=== PATIENT | female | born 1980 | race Caucasian/White ===

== ENCOUNTER 2016-07-11 09:46 | Outpatient (CLI) | payer OTHER ==
[~2016-07-11] VITALS: Ht 162.6 cm; Wt 60.8 kg
[2016-07-11] MEDS ORDERED: LANS30CA PO (09:56)
[2016-07-11 10:24] LABS: BASOPHILS % (AUTO) 0 % (0-10); EOSINOPHILS # (AUTO) 0.1 10^3/uL (0.0-0.3); EOSINOPHILS % (AUTO) 2 % (0-10); LYMPHOCYTES # (AUTO) 1.3 X 10^3 (1.0-4.0); LYMPHOCYTES % (AUTO) 25 % (12-44); MEAN CORPUSCULAR HEMOGLOBIN 28 PG (25-34); MEAN CORPUSCULAR HGB CONC 32 G/DL (32-36); MEAN CORPUSCULAR VOLUME 88 FL (80-99); MEAN PLATELET VOLUME 10.4 FL (7.4-10.4); MONOCYTES # (AUTO) 0.5 X 10^3 (0.0-1.0); MONOCYTES % (AUTO) 10 % (0-12); NEUTROPHILS # (AUTO) 3.2 X 10^3 (1.8-7.8); NEUTROPHILS % (AUTO) 62 % (42-75); PLATELET COUNT 232 10^3/uL (130-400); RED CELL DISTRIBUTION WIDTH 12.5 % (10.0-14.5); WHITE BLOOD COUNT 5.2 10^3/uL (4.3-11.0)
== END 2016-07-11 10:05 | disposition home or self-care (01) ==
LOC: PREOP 09:46
PROVIDERS: ATTEND Surgery Pediatric Surgery
DX: Z01.812 Encounter for preprocedural laboratory examination (principal); Z11.2 Encounter for screening for other bacterial diseases; R13.10 Dysphagia, unspecified; K42.9 Umbilical hernia without obstruction or gangrene
CPT/HCPCS: 36415; 85025; 87081

== ENCOUNTER 2016-07-18 06:22 | Day surgery (SDC) | payer OTHER ==
[~2016-07-18] VITALS: Ht 162.6 cm; Wt 60.8 kg
[~2016-07-18 06:22] MED LIST: LANS30CA PO
[2016-07-18 06:45] VITALS: BP 103/67
[2016-07-18] MEDS ORDERED: FAMOTIDINE 20MG/2ML IV (PEPCID) IV ONE (06:45)
[2016-07-18] MEDS ORDERED: MIDAZOLAM 2 MG/2 ML (VERSED) VIAL ONE ×2 (06:48→08:20)
[2016-07-18] MEDS ORDERED: fentaNYL INJECTION 100 MCG/2 ML AMP ONE ×2 (06:48→10:01)
[2016-07-18] MEDS ORDERED: ONDANSETRON 4 MG/2 ML (SDV) Z0FRAN ONE ×2 (06:53→10:03)
[2016-07-18] MEDS ORDERED: LIDOCAINE PF 2% 10 ML (XYLOCAINE) AMP ONE (06:53)
[2016-07-18] MEDS ORDERED: proPOfol 200 MG/20 ML (DIPRIVAN) VIAL IV ONE (06:53)
[2016-07-18] MEDS ORDERED: DEXAMETHASONE PF 10 MG/ML (DECADRON) VIAL ONE (06:53)
[2016-07-18] MEDS ORDERED: ROCURONIUM 50 MG/5 ML (ZEMURON) VIAL IV ONE (06:53)
[2016-07-18] MEDS: LACTATED RINGERS 1,000 ML IV PRN ×3 (07:03→12:05)
[2016-07-18] MEDS ORDERED: BUP/EPI 0.25% 1:200,000 (MARCAINE) 30 ML VIAL ONE (07:15)
[2016-07-18] MEDS ORDERED: CLINDAMYCIN 600 MG/NS 50 ML IVPB IV ONE ×2 (07:15)
[2016-07-18] MEDS ORDERED: BUP/EPI 0.5% 1:200,000 (SENSORCAINE) 30 ML VIAL ONE (07:19)
--- NOTE | 2016-07-18 07:49 | Progress Note-Pre Operative ---
Pre-Operative Progress Note H&P Reviewed The H&P was reviewed, patient examined and no changes noted. Date H&P Reviewed: July 18, 2016 Time H&P Reviewed: 07:45 Pre-Operative Diagnosis: Symptomatic umbilical hernia, dysphagia, Positive H. 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
[2016-07-18] MEDS ORDERED: ACETAMINOPHEN 325 MG TABLET/CAPLET (TYLENOL) PO PRN (08:00)
[2016-07-18] MEDS ORDERED: ONDANSETRON 4 MG/2 ML (SDV) Z0FRAN IVP PRN ×2 (08:00→10:30)
[2016-07-18] MEDS ORDERED: morphine INJ 10 MG/ML 1ML (SYR OR VIAL) IVP PRN (08:00)
[2016-07-18] MEDS ORDERED: MIDAZOLAM 2 MG/2 ML (VERSED) VIAL IVP ONE (08:30)
[2016-07-18] MEDS ORDERED: LACTATED RINGERS 1,000 ML IV ONE (09:37)
[2016-07-18] MEDS ORDERED: GLYCOPYRROLATE 0.2 MG/ML (ROBINUL) 2 ML VIAL ONE (09:37)
[2016-07-18] MEDS ORDERED: NEOSTIGMINE (BLOXIVERZ ) 1 MG/1ML 10 ML VIAL ONE (09:37)
[2016-07-18] MEDS ORDERED: SEVOFLURANE (ULTANE) 15 ML INHAL SOLN ONE (09:50)
[2016-07-18] MEDS ORDERED: morphine INJ 10 MG/ML 1ML (SYR OR VIAL) ONE (10:00)
[2016-07-18] MEDS ORDERED: MEPERIDINE (DEMEROL) INJ 50 MG/ML ONE (10:00)
--- NOTE | 2016-07-18 10:02 | Progress Note-Post Operative ---
Post-Operative Progess Note Surgeon (s)/Casino Floor Supervisor (s) Surgeon ELIDA BABCOCK MD Casino Floor Supervisor: [facility] POST ACUTE CARE NURSE Pre-Operative Diagnosis Symptomatic umbilical hernia, dysphagia, Positive H. Pylori blood test Post-Operative Diagnosis symptomatic reducible umbilical hernia(1.5cm). reflux esophagitis(class B), small HH(2-3cm), moderate gastritis. Procedure & Operative Findings Date of Procedure 07/18/16 Procedure Performed/Findings EGD with bx. Anesthesia Type GET Estimated Blood Loss Estimated blood loss (mL): minimal Specimens/Packing Specimens Removed GE jxn, antrum ELIDA BABCOCK MD July 18, 2016 10:02 am
[2016-07-18] MEDS ORDERED: HYDROmorphone (DILAUDID) 2 MG/ML VIAL ONE (10:03)
[2016-07-18] MEDS ORDERED: PANT40TA2 PO (10:06)
[2016-07-18] MEDS ORDERED: TRAM-42 PO (10:06)
[2016-07-18] MEDS ORDERED: SUCR1TAB36 PO (10:06)
--- NOTE | 2016-07-18 10:07 | Discharge Inst-Surgical ---
D/C Lap Instructions-SADIQ New, Converted, or Re-Newed RX: RX on Chart Follow Up Appt in 2 weeks Activity as tolerated No driving for 24 hours No driving while on pain medications Incentive Spirometry use every 2 hours while awake Regular Diet Symptoms to Report: Fever over 101 degree F, Nausea/Vomiting Infection Signs and Symptoms to report: Increased redness, Foul odor of wound, Increased drainage Bathing instructions: May shower Operative Area Clean/Dry; Keep incision clean/dry If any problems/questions: Contact your physician or go to Emergency Room ELIDA BABCOCK MD July 18, 2016 10:07 am
[2016-07-18] MEDS: morphine INJ 10 MG/ML 1ML (SYR OR VIAL) IVP PRN ×2 (10:21→10:29)
[2016-07-18] MEDS ORDERED: HYDROmorphone (DILAUDID) 2 MG/ML VIAL IVP PRN (10:30)
[2016-07-18] MEDS ORDERED: fentaNYL INJECTION 100 MCG/2 ML AMP IVP PRN (10:30)
[2016-07-18 11:00] VITALS: BP 105/72
[2016-07-18 11:30] VITALS: BP 97/66
--- NOTE | 2016-07-18 11:35 | OPERATIVE REPORT ---
DATE OF SERVICE: 07/18/2016 ATTENDING PRIMARY CARE PHYSICIAN: Dr. Madisyn Conteh. PREOPERATIVE DIAGNOSES: Gastroesophageal reflux disease and peptic ulcer disease with H. pylori, symptomatic reducible umbilical hernia. POSTOPERATIVE DIAGNOSES: Reducible umbilical hernia approximately 1.5 cm in size, reflux esophagitis class B, small to moderate size hiatal hernia 2 to 3 cm in size, moderate severity gastritis. No formal ulcers. PROCEDURE: Open umbilical hernia repair with mesh. EGD with biopsy. SURGEON: Dr. Jeanette Babcock POLICE CADET: Quan Butler APRN ANESTHESIA: General endotracheal. ESTIMATED BLOOD LOSS: Minimal. FINDINGS: Small reducible umbilical hernia 1.5 cm in size. Reflux esophagitis class B. Small to moderate size hiatal hernia 2 to 3 cm in size. Moderate severity gastritis with no formal ulcers, polyps, or any neoplasms identified. Pylorus and duodenum appeared normal. DISPOSITION: The patient tolerated the procedure well. INDICATIONS: The patient is a 35-year-old female who was referred over to us for two different issues. She has had issues with substernal pressure sensation as well as crampy pain for the past several months. She underwent a blood test which was positive for H. pylori. 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 She reports that she continues to have some chest discomfort and pressure on an intermittent basis. She also has an umbilical hernia, which is small; however, quite tender to palpation and reducible. The patient was brought to the operating room, laid supine on the table. After adequate IV pain and sedating medications and general endotracheal intubation, the abdomen was prepped and draped in standard surgical fashion. Marcaine 0.5% with epinephrine was then used to anesthetize the supraumbilical region and a crescent-shaped skin incision made using a 15 blade. Subcutaneous tissue was then dissected using electrocautery. The hernia was identified, which was small and the fascial defect approximately 1.5 cm in size. The hernia sac was then excised and no other hernias palpated intraperitoneally. A coated polypropylene mesh 4.3 cm in diameter was then placed into the defect and then sutured transfascially in a concentric manner onto the mesh using 0 Prolene suture. Good hemostasis was observed. The subcutaneous tissue was then reapproximated using 3-0 Vicryl interrupted sutures. Skin was closed using 4-0 Monocryl running subcuticular suture. The wound was then cleaned and covered with Dermabond. The umbilicus was then stuffed with tonsil sponges, followed by 4 x 4 gauze followed by a large Op-Site. The patient tolerated this portion of the procedure well. We will have her keep the dressing on for approximately 5 days, then remove. She is also instructed to do no heavy lifting or exertion absolutely for the next two weeks and then slowly increased work and exertion until 6 weeks from the surgery date. Under the same general anesthesia, we then proceeded with the EGD portion of the procedure. The mouth piece was applied and the endoscope was placed in the mouth visualizing the pharynx and hypopharyngeal region. Vocal cords, epiglottis and vallecula identified and appeared to be normal. The endotracheal tube was visualized going through the vocal cords. The endoscope was then intubated in the esophageal opening and esophagus insufflated. Endoscope was then advanced to the first, second and third portions of the esophagus. At the level of the GE junction, a reflux esophagitis class B identified. There were no ulcers or strictures identified in this region. A biopsy was taken with forceps with visualization of good hemostasis. The endoscope was then easily advanced in the stomach. The endoscope retroflexed, visualizing a small to moderate size hiatal hernia approximately 2 to 3 cm in size. There was also moderate severity gastritis which was diffuse. There were no formal ulcers, polyps, or any neoplasms identified. A biopsy was taken of the antrum with forceps with visualization of good hemostasis. The endoscope was then advanced to the pylorus and the first and second portions of the duodenum, which appeared normal. The endoscope was then slowly withdrawn taking a second look and suctioning of residual air with no additional findings. The patient tolerated this portion of the procedure well. For her reflux esophagitis, hiatal hernia and gastritis, we will start her on Protonix 40 mg daily as well as Carafate 1 gram q.i.d. for the next two weeks and then on a p.r.n. basis. She is also to proceed with the necessary lifestyle and diet accommodation including small and more frequent meals, avoidance of eating at night as well as head elevation while lying supine. She also needs to avoid alcoholic and caffeinated beverages as well as spicy, greasy and acidic foods. If despite maximal medical therapy she continues to have symptoms, we will proceed with evaluation for a hiatal hernia repair as well as an antireflux procedure. Job ID: [id number] DocumentID: [id number] Dictated Date: 07/18/2016 10:19:44 Manager Rail Date: 07/18/2016 11:34:33 Dictated By: JEANETTE BABCOCK MD
[2016-07-18] MEDS ORDERED: PROMETHAZINE INJ 25 MG/ML (PHENERGAN) AMP ONE (11:49)
[2016-07-18 12:00] VITALS: BP 98/58
[2016-07-18] MEDS ORDERED: PROMETHAZINE INJ 25 MG/ML (PHENERGAN) AMP IVP PRN (12:00)
[2016-07-18 13:00] VITALS: BP 98/58
[2016-07-18 13:35] VITALS: BP 98/58
== END 2016-07-18 13:35 | disposition home or self-care (01) ==
LOC: SDC 06:22
PROVIDERS: ATTEND Surgery Pediatric Surgery
DX: K42.9 Umbilical hernia without obstruction or gangrene (principal); K21.0 Gastro-esophageal reflux disease with esophagitis; K44.9 Diaphragmatic hernia without obstruction or gangrene; K29.70 Gastritis, unspecified, without bleeding; Z80.0 Family history of malignant neoplasm of digestive organs; Z87.891 Personal history of nicotine dependence
CPT/HCPCS: 84703; 94664

== ENCOUNTER → 2021-07-17 | Outpatient (CLI) | payer OTHER ==
[~2021-07-17] VITALS: Ht 162.6 cm; Wt 62.6 kg
[~2021-07-17] MED LIST changes: +PANT40TA2 PO; +SUCR1TAB36 PO; +TRAM-42 PO
== END | disposition home or self-care (01) ==
LOC: PREOP 06:18
PROVIDERS: ATTEND Surgery
DX: Z01.818 Encounter for other preprocedural examination (principal)

== ENCOUNTER 2021-11-27 05:38 | Outpatient (CLI) | payer OTHER ==
[~2021-11-27] VITALS: Ht 162.6 cm; Wt 62.1 kg
== END 2021-11-27 09:02 | disposition home or self-care (01) ==
LOC: PREOP 05:38 → EDSTATUS 08:45 → PREOP 09:02
PROVIDERS: ATTEND Surgery
DX: Z01.818 Encounter for other preprocedural examination (principal)

== ENCOUNTER 2021-12-04 10:10 | Day surgery (SDC) | payer OTHER ==
--- NOTE | 2021-11-26 10:08 | HISTORY AND PHYSICAL ---
DATE OF SERVICE: DATE OF ADMISSION AND PROCEDURE: 12/04/2021. ATTENDING PRIMARY CARE PHYSICIAN: Madisyn Conteh DO. HISTORY OF PRESENT ILLNESS: The patient is a 41-year-old female, who is known to us. She was seen in 2016 for an umbilical hernia as well as dysphagia and a positive H. pylori blood test. On 07/18/2016, she underwent an open umbilical hernia and an EGD with biopsies. She was found to have a small reducible umbilical hernia that was 1.5 cm in size. The EGD revealed a reflux esophagitis grade B, small to moderate size hiatal hernia that was approximately 2 to 3 cm in size, moderate severity gastritis with no formal ulcers, polyps or any neoplasms identified. Biopsies at that time were negative for H. pylori as well as negative for Tatum's esophagus. On today's visit, she reports she is in need of a screening colonoscopy. She does have a family history of colon cancer with her mother having the disease that was diagnosed in her early 50s. She denies any blood in her stool as well as no diarrhea or constipation. She also denies any abdominal pain. She does report that she does have occasional episodes of reflux and does intermittently take PPIs or Zantac for her heartburn, but reports that she does not take anything regular. She denies any nausea or vomiting. She reported an episode of hematemesis over a year ago, but reports that she was drinking alcohol prior to the incident. She also reports that she has had an elevated CA-125 level and this was first detected in 2014 and at that time was 38. She reports that her last level was 46. She does have a history of ovarian cancer. PAST MEDICAL HISTORY: Gastroesophageal reflux disease. PAST SURGICAL HISTORY: section x2 in 1999 and 2002, bilateral breast augmentation 07/2017, and umbilical hernia repair with mesh and EGD 06/2016. ALLERGIES: PENICILLIN. MEDICATIONS: None. SOCIAL HISTORY: Previous for tobacco smoke 2 packs years, quit in 1998. Social for alcohol. FAMILY HISTORY: Mother, colon cancer in her 50s. Paternal grandmother, ovarian cancer. REVIEW OF SYSTEMS: A well-nourished female, in no acute distress. She is not experiencing any shortness of breath or difficulty breathing. No chest pain, palpitations or diaphoresis. No nausea, vomiting or abdominal pain. She does report episodes of reflux. No diarrhea or constipation. No red blood per rectum. No dark tarry stools. No fever or chills. No recent inadvertent weight loss. All other review of systems negative. PHYSICAL EXAMINATION: VITAL SIGNS: Blood pressure is 107/76. Current weight is 141.3 pounds at 5 feet 4 inches. CHEST: Clear. Good breath sounds bilaterally. HEART: Regular, no murmurs. EXTREMITIES: No lower extremity edema. Negative Homans sign. HEENT: No scleral icterus. NECK: No cervical lymphadenopathy. ABDOMEN: Soft, nontender, and nondistended. SKIN: Warm, dry, and pink. NEUROLOGIC: Awake, alert and oriented x3. ASSESSMENT AND PLAN: A 41-year-old female, who has a family history of colon cancer as well as reflux and a history of H. pylori. At this time, we will proceed with scheduling her for a screening colonoscopy as well as an EGD. Job ID: [id number] DocumentID: [id number] Dictated Date: 11/26/2021 09:09:40 Employee Service Officer Date: 11/26/2021 10:07:12 Dictated By: LOUISE MORE APRN
[~2021-12-04] VITALS: Ht 162.6 cm; Wt 62.1 kg
[2021-12-04] MEDS ORDERED: LIDOCAINE JELLY 2% 6 ML SYRINGE MM PRN (10:15)
[2021-12-04] MEDS ORDERED: HURRICAINE EXT TUBE (BENZOCAINE) XX PRN (10:15)
[2021-12-04] MEDS ORDERED: LACTATED RINGERS 1,000 ML IV STA (10:15)
[2021-12-04 10:30] VITALS: BP 105/75
--- NOTE | 2021-12-04 11:12 | Progress Note-Pre Operative ---
Pre-Operative Progress Note Date of Available H&P: Dec 04, 2021 Date H&P Reviewed: Dec 04, 2021 Time H&P Reviewed: 10:30 History & Physical: No changes noted Pre-Operative Diagnosis: GERD, hx ovarian ca, screening colo/FH ELIDA BABCOCK MD Dec 04, 2021 11:12
[2021-12-04] MEDS ORDERED: OMEP40CA6 PO (11:13)
--- NOTE | 2021-12-04 11:14 | Discharge Inst-Surgical ---
D/C Lap Instructions-SADIQ Follow Up Activity as tolerated High Fiber Diet 25g or more per day Avoid Alcohol, Caffeine, Spicy [place] and Acid foods. Drink 64 fluid oz or more of fluids per day. Symptoms to Report: Fever over 101 degree F, Nausea/Vomiting If any problems/questions: Contact your physician or go to Emergency Room LEIDA BABCOCK MD Dec 04, 2021 11:14
[2021-12-04] MEDS ORDERED: ONDANSETRON 4 MG/2 ML (SDV) Z0FRAN IVP PRN (11:15)
[2021-12-04] MEDS ORDERED: ONDANSETRON 4 MG (ZOFRAN) ORAL DISSOLVE TAB PO PRN (11:15)
[2021-12-04] MEDS ORDERED: PROPOFOL INJECTION 50 ML IV ONE ×2 (11:48→12:10)
[2021-12-04] MEDS ORDERED: MIDAZOLAM 2 MG/2 ML (VERSED) VIAL ONE (11:48)
[2021-12-04] MEDS ORDERED: KETAMINE 50 MG/5 ML SYRINGE ONE (11:54)
[2021-12-04 12:40] VITALS: BP 110/74
[2021-12-04 12:45] VITALS: BP 102/63
[2021-12-04 12:50] VITALS: BP 103/59
--- NOTE | 2021-12-04 12:53 | Progress Note-Post Operative ---
Post-Operative Progess Note Surgeon (s)/Line Service Supervisor (s) Surgeon ELIDA BABCOCK MD Line Service Supervisor: none Pre-Operative Diagnosis GERD, hx ovarian ca, screening colo/FH Post-Operative Diagnosis reflux esophagitis(B-C), mild dist esoph stricture, small HH(2cm), moderate gastritis. mild chronic stage 2 ext and int hemorrhoids, mild sigmoid diverticulosis. Procedure & Operative Findings Date of Procedure 12/04/21 Procedure Performed/Findings EGD with bx and balloon dilatation. colonoscopy. Anesthesia Type mac Estimated Blood Loss Estimated blood loss (mL): minimal Specimens/Packing Specimens Removed ge jxn, antrum, ELIDA BABCOCK MD Dec 04, 2021 12:53
[2021-12-04] MEDS ORDERED: fentaNYL INJ 100 MCG/2 ML AMP ONE (13:52)
[2021-12-04] MEDS ORDERED: fentaNYL INJ 100 MCG/2 ML AMP IVP ONE (14:00)
--- NOTE | 2021-12-04 14:30 | Anesthesia-General Post-Op ---
MAC Patient Condition Mental Status/LOC: Same as Preop Cardiovascular: Satisfactory Nausea/Vomiting: Absent Respiratory: Satisfactory Pain: Controlled Complications: Absent Post Op Complications Complications None Follow Up Care/Instructions Patient Instructions None needed. Anesthesiology Discharge Order Discharge Order Patient is doing well, no complaints, stable vital signs, no apparent adverse anesthesia problems. No complications reported per nursing. YENY CRAVEN CRNA Dec 04, 2021 14:30
[2021-12-04 14:50] VITALS: BP 103/69
--- NOTE | 2021-12-04 21:55 | OPERATIVE REPORT ---
DATE OF SERVICE: 12/04/2021 ATTENDING PRIMARY CARE PHYSICIAN: Dr. Madisyn Conteh. PREOPERATIVE DIAGNOSES: Gastroesophageal reflux disease, dysphagia, history of H. pylori, screening colonoscopy with family history of colon cancer, history of ovarian cancer. POSTOPERATIVE DIAGNOSES: Reflux esophagitis between Pender grade B and C with a mild distal esophageal stricture, small hiatal hernia 2 cm in size, moderate gastritis. No distal obstructions. Chronic stage II external and internal hemorrhoids, mild sigmoid and descending colonic diverticulosis. PROCEDURE: EGD with biopsy and balloon dilatation. Colonoscopy. SURGEON: Elida Babcock MD. ANESTHESIA: Monitored anesthesia care. ESTIMATED BLOOD LOSS: Minimal. FINDINGS: Reflux esophagitis between Pender grade B and C with a mild distal esophageal stricture, small hiatal hernia 2 cm in size, moderate gastritis. No distal obstructions. Chronic stage II external and internal hemorrhoids, mild sigmoid and descending colonic diverticulosis. DISPOSITION: The patient tolerated the procedure well. INDICATIONS: The patient is a 41-year-old female known to us. We had seen her in 2017 for an umbilical hernia as well as dysphagia and H. pylori. We had repaired the hernia and she was found to have a small hiatal hernia and a moderate severity gastritis. She was referred over to us for a screening colonoscopy. She reports that she does have a family history of colon cancer with her mother being diagnosed with the disease in her early 50s. She also reports again that she does have intermittent episodes of reflux as well as dysphagia. She also did have one episode of hematemesis over a year ago; however, at that time, she was drinking alcohol. She also does report history of ovarian cancer, which was first detected in 2014 at age 37 and she does report that she had a slight elevation of her CA-125. DESCRIPTION OF PROCEDURE: The patient was brought to the endoscopy suite, laid in the left lateral decubitus position. After adequate IV pain and sedative medications and monitored anesthesia care, the mouthpiece was applied. The endoscope was placed in the mouth, visualizing the pharynx and hypopharyngeal region. Vocal cords, epiglottis and vallecula identified and appeared to be normal. The endoscope was then gently intubated at the esophageal opening and esophagus insufflated. The endoscope was then advanced through the first, second and third portion of the esophagus at the level of GE junction, a reflux esophagitis between Pender grade B and C identified as well as a mild distal esophageal stricture. A biopsy was taken with forceps with visualization of good hemostasis. The endoscope was then advanced into the stomach and endoscope retroflexed, visualizing a small hiatal hernia approximately 2 cm in size as well as the Schatzki's ring. There was a moderate severity gastritis. No formal ulcerations, polyps, or any neoplasms. A biopsy was taken of the antrum to rule out H. pylori. The endoscope was then advanced to the pylorus and the first and second portion of the duodenum, which appeared normal with no distal obstructions. The balloon was then placed in the stomach and pulled back to the area of the stricture. We then proceeded in a stepwise graded fashion from 2, 4, then eventually 6 atmospheres of pressure or 20 mm in luminal diameter with moderate resistance and left this in place for approximately 60 seconds. The balloon was then desufflated and removed with visualization of good hemostasis as well as no mucosal tears. The endoscope was then slowly withdrawn while taking a second look and suctioning of residual air with no additional findings. A digital rectal examination was performed, which revealed chronic stage II external and internal hemorrhoids, not actively edematous nor inflamed and no bleeding. Normal sphincter tone was felt and there were no palpable masses. The endoscope was then intubated into the anus and rectum gently insufflated. The endoscope was then advanced through the valves of Torres of the rectum with no polyps or any neoplasms identified. Through the sigmoid and descending colon, there were some mild diverticulosis identified. We then proceeded through the remainder of the transverse and ascending colon to the cecum, which appeared normal. There were no polyps or any neoplasms identified throughout the colon or rectum. The endoscope was then slowly withdrawn while taking a second look and suctioning of residual air with no additional findings. The patient tolerated the procedure well. For her reflux esophagitis, hiatal hernia as well as her dysphagia type of symptoms, we will start her on omeprazole 40 mg daily as well as the necessary lifestyle and dietary accommodation including avoidance of alcoholic and caffeinated beverages as well as spicy, greasy and acidic foods. She will also be instructed to take in small and more frequent meals and avoid eating at night. We will also recommend that she proceed with a high fiber diet with incorporation of a fiber supplement, which should equal or exceed 25 grams daily as well as significant amounts of water to promote soft stools on a daily basis. Due to her first-degree family history of colon cancer, we will recommend followup colonoscopies approximately every five years. Job ID: [id number] DocumentID: [id number] Dictated Date: 12/04/2021 12:48:51 Epidemiology Internship Date: 12/04/2021 21:11:11 Dictated By: ELIDA BABCOCK MD
== END 2021-12-04 14:45 | disposition home or self-care (01) ==
LOC: ENDO 10:10
PROVIDERS: ATTEND Surgery
DX: Z12.11 Encounter for screening for malignant neoplasm of colon (principal); K21.00 Gastro-esophageal reflux disease with esophagitis, without bleeding; K22.2 Esophageal obstruction; K44.9 Diaphragmatic hernia without obstruction or gangrene; K29.50 Unspecified chronic gastritis without bleeding; K64.1 Second degree hemorrhoids; K64.4 Residual hemorrhoidal skin tags; K57.30 Diverticulosis of large intestine without perforation or abscess without bleeding; Z80.0 Family history of malignant neoplasm of digestive organs; Z85.43 Personal history of malignant neoplasm of ovary; Z86.19 Personal history of other infectious and parasitic diseases; Z87.891 Personal history of nicotine dependence
CPT/HCPCS: 84703